=== PATIENT | male | born 1990 | race African-American/Black ===

== ENCOUNTER 2016-09-17 08:58 | Emergency (ER) | payer SELFPAY ==
[2016-09-17 09:06] VITALS: TEMP 97.9; BMI 32.8
[2016-09-17] MEDS ORDERED: KETOROLAC TROMETH 30 MG/ML VIAL IM ONE (09:18)
--- NOTE | 2016-09-17 09:21 | EDPRACDOC ---
- General Information Chief Complaint: Back Pain Stated Complaint: FLANK PAIN Time Seen by Provider: 09/17/16 09:15 Information Source: Parent Mode Of Arrival: Car Home Medications: Home Medications Hydrocodone/Acetaminophen [Lortab 5-325 mg Tablet] 1 each PO Q4H PRN #15 tablet 09/17/16 Ketorolac Tromethamine [Toradol] 10 mg PO Q6H PRN #20 tab 09/17/16 Allergies/Adverse Reactions: Allergies Allergy/AdvReac Type Severity Reaction Status Date / Time amoxicillin Allergy Unknown Verified 09/17/16 09:32 - History of Present Illness Onset: yesterday HPI: PT SAID THAT HE HAS BILATERAL BACK PAIN. HE DOES NOT RECALL DOING ANYTHING ABNORMAL YESTERDAY. PT SAID THAT IT HURTS TO MOVE. Pain Location: Reports: Lumbar Pain Radiates To: Reports: None Pain Caused By: Reports: Spontaneous Relevant History: Reports: None Pain Severity: Reports: Mild Pain Quality: Reports: Aching Worsened By: Reports: Movement Associated Signs and Symptoms: Reports: None ED Past Medical History - History Reviewed No Past Medical History: Yes Patient has no past medical history - Patient Medical History Psychological History: Denies: Depression Surgical History: Reports: No Significant History - Social Medical History Smoking Status: Never smoker ETOH: None Substance Abuse: None Lives In: Home EDM Review of Systems - Review of Systems ROS Negative Except as Marked: Yes All systems reviewed and were negative except as marked Musculoskeletal: Back - Physical Exam Constitutional: Alert (Awake), No apparent distress Oriented to: Time, Person, Place Last recorded Vital Signs: Last Vital Signs Temp 97.9 F 09/17/16 09:02 Pulse 97 09/17/16 09:02 Resp 18 09/17/16 09:02 BP 152/73 09/17/16 09:02 Pulse Ox 99 09/17/16 09:02 Oxygen Pulse Oxygen Saturation 99 O2 Device Room Air Oxygen Flow Rate Fraction of Inspired Oxygen ( FIO2) - HEENT Head: Normal ( normocephalic) Eye Exam: Normal (PERRL, EOMI, Sclera white) Oropharynx: Normal (Pharynx:Moist without exudate,Gums-no swelling) ENT EAC: Normal TMJ: Normal Nose: No Symptoms Reported (septum midline) Neck: Normal (FROM, trachea at midline) - Respiratory/Cardiovascular Respiratory: Normal - CTA (BBS clear to auscultation without adventitious sounds ) Cardiovascular: Normal (RRR without murmur, gallop or rub) - GI Auscultation: Normal (NABS) Palpation: Normal (Soft,No rebound or guarding, non distended) Tenderness: Non tender Stratton's Sign: Negative - Musculoskeletal Back: Lumbar TTP Extremities: Normal - Integumentary Skin: Normal, Warm, Dry Lymphatics: Normal (no adenopathy) - Neurologic Memory Impaired: Normal Motor Function: Normal (Normal tone, Pulses 2+ No cyanosis or edema, FROM) Cranial Nerve: Normal (CN II-X11 intact sensation, strength 5/5) Cerebellar: Normal Mood Description: Normal Thought: Coherent Perception: Normal Decision Time to Discharge: 10:12 - Departure Yes I personally saw and evaluated the patient. Disposition: Home Condition: Fair Final Diagnosis: Lumbar sprain Instructions: Thoracic (Lumbar) Strain Education/Counseling Given To: Patient Education/Counseling Given Regarding: Diagnosis, Treatment, Follow Up Referrals: None,No Provider [Primary Care Provider] - One Week Mainor Vora MD [Staff Physician] - One Week Prescriptions: Hydrocodone/Acetaminophen [Lortab 5-325 mg Tablet] 1 each PO Q4H PRN #15 tablet PRN Reason: Pain Ketorolac Tromethamine [Toradol] 10 mg PO Q6H PRN #20 tab PRN Reason: Pain
[2016-09-17 10:08] LABS: LEUKOCYTES/URINE NEG (NEGATIVE); NITRITE/URINE NEG (NEGATIVE); URINE OCCULT BLOOD NEG (NEG/TRACE); WBC/URINE 0-2 (0-2)
[2016-09-17 10:24] VITALS: BP 148/67; PULSE 84
== END 2016-09-17 10:22 | disposition home or self-care (01) ==
LOC: ED 08:58
DX: S39.012A Strain of muscle, fascia and tendon of lower back, initial encounter (principal); X58.XXXA Exposure to other specified factors, initial encounter
CPT/HCPCS: 81001; 96372; 99283; J1885